=== PATIENT | female | born 1955 | race Asian ===

== ENCOUNTER 2021-03-25 14:20 | Outpatient (CLI) | payer OTHER | END 2021-03-25 22:37 | disposition home or self-care (01) | LOC: MRI 14:20 | PROVIDERS: ATTEND Neurological Surgery | DX: M54.16 Radiculopathy, lumbar region (principal) ==

== ENCOUNTER 2021-05-26 09:50 | Outpatient (CLI) | payer OTHER | END 2021-05-26 22:16 | disposition home or self-care (01) | LOC: US 09:50 | PROVIDERS: ATTEND Neurological Surgery | DX: I82.409 Acute embolism and thrombosis of unspecified deep veins of unspecified lower extremity (principal) ==

== ENCOUNTER 2023-04-17 09:27 | Observation (INO) | payer OTHER ==
[~2023-04-17] VITALS: Ht 167.6 cm; Wt 83.1 kg
[2023-04-17] VITALS (13 sets, daily range): BP systolic 92–133; BP diastolic 54–77; TEMP 97.8–99.1; Ht 167.6 cm; Wt 83.1 kg
[2023-04-17] MEDS ORDERED: CELEBREX200 MG PO (09:53)
[2023-04-17] MEDS ORDERED: CEFADROXIL500 MG PO (09:53)
[2023-04-17] MEDS ORDERED: ASPIRIN/ENTERIC81 MG PO (09:53)
[2023-04-17] MEDS ORDERED: ENDOCET1 TA1 PO (09:54)
[2023-04-17] MEDS ORDERED: CYCL10TA35 PO (09:54)
[2023-04-17] MEDS ORDERED: PROMETHAZINE HY25 MG PO (09:55)
[2023-04-17] MEDS ORDERED: ALBUTERO1 INH (09:56)
[2023-04-17] MEDS ORDERED: PROAIR HFA INH (09:57)
[2023-04-17] MEDS ORDERED: LIPITOR20 MG PO ×2 (09:59→21:08)
[2023-04-17] MEDS ORDERED: D35000 UNIT PO (10:00)
[2023-04-17] MEDS ORDERED: DILT-XR240 MG PO (10:00)
[2023-04-17] MEDS ORDERED: GRALISE300 MG PO (10:01)
[2023-04-17] MEDS ORDERED: ISOS30TA17 PO (10:03)
[2023-04-17] MEDS ORDERED: HYDR25TA60 PO ×2 (10:03→21:11)
[2023-04-17] MEDS ORDERED: LORA5TAB2 PO (10:04)
[2023-04-17] MEDS ORDERED: METF100038 PO (10:04)
[2023-04-17] MEDS ORDERED: METO25TA2 PO (10:05)
[2023-04-17] MEDS ORDERED: POTASSIUM CHLO20 ME1 PO (10:05)
[2023-04-17 12:00] LABS: PLATELET COUNT 553 K/uL (152-353)
[2023-04-17 12:03] LABS: POTASSIUM 2.6 mmol/L (3.6-5.2)
[2023-04-17] MEDS ORDERED: IPRATROPIUM/ INH (21:07)
[2023-04-17] MEDS ORDERED: CARTIA XT240 MG PO (21:10)
[2023-04-17] MEDS ORDERED: BUDE1AER5 INH (21:10)
[2023-04-17] MEDS ORDERED: KLOR-CON M2020 MEQ PO (21:12)
[2023-04-17] MEDS ORDERED: METF500T PO (21:12)
[2023-04-18 03:43] VITALS: BP 123/64; TEMP 98.7
[2023-04-18 08:00] VITALS: BP 134/74; TEMP 98
[2023-04-18] MEDS ORDERED: GABA300C2 PO (09:18)
[2023-04-18] MEDS ORDERED: CLARITIN10 M1 PO (09:24)
[2023-04-18] MEDS ORDERED: COZAAR25 MG PO (09:25)
== END 2023-04-18 10:06 | disposition home or self-care (01) ==
LOC: ED 09:27 → MED/SURG 17:45
PROVIDERS: Family Medicine; ADMIT Nurse Practitioner Family; ATTEND Internal Medicine Endocrinology, Diabetes & Metabolism
DX: R07.89 Other chest pain (principal); Z87.898 Personal history of other specified conditions; E11.9 Type 2 diabetes mellitus without complications; I10 Essential (primary) hypertension; E78.49 Other hyperlipidemia; Z96.641 Presence of right artificial hip joint; F17.210 Nicotine dependence, cigarettes, uncomplicated; R20.0 Anesthesia of skin
CPT/HCPCS: 36415; 80053; 82550; 84484; 85027; 93005; 96365; 96372; 96375; 99221; 99284; G0378; J1885; J2270; Q9963